=== PATIENT | male | born 1970 | race Caucasian/White ===

== ENCOUNTER → 2019-04-04 | Day surgery (SDC) | payer BC ==
[2019-04-03 12:46] VITALS: BMI 28.8
== END ==
LOC: SDC 13:08
PROVIDERS: ATTEND Specialist
DX: J34.2 Deviated nasal septum (principal); J34.3 Hypertrophy of nasal turbinates; Z53.8 Procedure and treatment not carried out for other reasons; Z88.0 Allergy status to penicillin